=== PATIENT | female | born 1970 | race African-American/Black ===

== ENCOUNTER 2022-12-03 18:37 | Emergency (ER) | payer MEDICAID ==
[~2022-12-03] VITALS: Ht 160 cm; Wt 84.8 kg
[2022-12-03] MEDS ORDERED: predniSONE 20 MG TABLET ONE (19:42)
[2022-12-03 19:45] VITALS: O2SAT 96
[2022-12-03] MEDS ORDERED: ALBUTEROL FS 2.5 MG/0.5 ML VIAL.NEB ONE (19:48)
[2022-12-03] MEDS ORDERED: IPRATROPIUM NEB FS 0.5 MG/2.5 ML AMPUL.NEB ONE (19:48)
[2022-12-03 20:00] VITALS: O2SAT 97; O2SAT 99
[2022-12-03] MEDS ORDERED: IPRATROPIUM NEB FS 0.5 MG/2.5 ML AMPUL.NEB NEB ONE (20:00)
[2022-12-03] MEDS ORDERED: predniSONE 50 MG TABLET PO ONE (20:00)
[2022-12-03] MEDS ORDERED: ALBUTEROL FS 2.5 MG/0.5 ML VIAL.NEB NEB ONE (20:00)
[2022-12-03 21:22] VITALS: BP 106/72; TEMP 98.7; O2SAT 99
== END 2022-12-03 21:23 | disposition home or self-care (01) ==
LOC: ER 18:42
DX: J45.909 Unspecified asthma, uncomplicated (principal); R06.02 Shortness of breath; Z60.2 Problems related to living alone; Z88.1 Allergy status to other antibiotic agents
CPT/HCPCS: 99283; 71045; 93005; 94640; J7512

== ENCOUNTER 2025-03-01 00:19 | Emergency (ER) | payer BC ==
[~2025-03-01] VITALS: Ht 160 cm; Wt 89.8 kg
[2025-03-01] MEDS ORDERED: ONDANSETRON HCL/PF 4 MG/2 ML VIAL ONE (01:11)
[2025-03-01] MEDS: IV NS 0.9% 1,000 ML BAG IV ONE (01:34)
[2025-03-01] MEDS: ONDANSETRON HCL/PF 4 MG/2 ML VIAL IVP ONE (01:34)
[2025-03-01 01:45] LABS: CALCIUM, SERUM 8.5 mg/dL (8.5-10.1); CREATININE 0.8 mg/dL (0.6-1.3); PLATELET COUNT (AUTO) 291 K/uL (150-450); RED BLOOD CELL COUNT(AUTO) 4.73 MIL/uL (4.0-5.2); RED CELL DISTRIBUTION WIDTH 18.1 % (11.5-15.0); SODIUM SERUM 140 mmol/L (136-145); UREA NITROGEN, BLOOD 11 mg/dL (7-18); WHITE BLOOD COUNT (AUTO) 6.7 K/uL (4.3-11.0)
[2025-03-01 01:51] LABS: ASPARTATE AMINOTRANSFERASE 14 U/L (15-37); TOTAL PROTEIN, SERUM 7.2 g/dL (6.4-8.2)
[2025-03-01] MEDS ORDERED: ONDA4TAB5 PO (02:21)
[2025-03-01 02:34] VITALS: BP 136/84; TEMP 97.7; O2SAT 100
== END 2025-03-01 02:34 | disposition home or self-care (01) ==
LOC: ER 00:22
DX: R11.2 Nausea with vomiting, unspecified (principal); R42 Dizziness and giddiness; I10 Essential (primary) hypertension; I45.4 Nonspecific intraventricular block; I49.3 Ventricular premature depolarization; J45.909 Unspecified asthma, uncomplicated; Z88.6 Allergy status to analgesic agent
CPT/HCPCS: 99284; 96374; 96361; 93005; 85025; 80048; 83690; 80076; 36415; 84484; J2405; J7030